=== PATIENT | female | born 1960 | race Caucasian/White ===

== ENCOUNTER 2022-01-08 10:20 | Emergency (ER) | payer MEDICARE, MEDICAID ==
[2022-01-08 10:25] VITALS: BP 109/63; PULSE 68
== END 2022-01-08 11:26 | disposition home or self-care (01) ==
LOC: VM.ED 10:20
DX: J02.8 Acute pharyngitis due to other specified organisms (principal); Z88.0 Allergy status to penicillin; Z88.5 Allergy status to narcotic agent; Z88.8 Allergy status to other drugs, medicaments and biological substances
CPT/HCPCS: 87651-QW; 99283

== ENCOUNTER 2023-05-12 11:56 | Emergency (ER) | payer MEDICAID, MEDICARE ==
[2023-05-12] MEDS ORDERED: Acetaminophen/HYDROcodone 325-5 MG Tab PO ONE (13:02)
[2023-05-12 13:50] VITALS: BP 122/60; PULSE 78
== END 2023-05-12 14:12 | disposition home or self-care (01) ==
LOC: VM.ED 11:56
DX: S63.287A Dislocation of proximal interphalangeal joint of left little finger, initial encounter (principal); S01.81XA Laceration without foreign body of other part of head, initial encounter; Z88.0 Allergy status to penicillin; Z88.8 Allergy status to other drugs, medicaments and biological substances; W18.30XA Fall on same level, unspecified, initial encounter
CPT/HCPCS: 12011; 26770; 73140; 99283; A9270

== ENCOUNTER 2023-11-16 10:07 | Emergency (ER) | payer MEDICARE, MEDICAID ==
[2023-11-16] MEDS: Ibuprofen 200 MG Tab PO ONE (10:53)
[2023-11-16] MEDS: Acetaminophen 500 MG Tab PO ONE (10:54)
[2023-11-16] MEDS: levETIRAcetam in NaCl (iso-os) 500 MG in Premix Bag 1 BAG IV ONE (12:04)
[2023-11-16] MEDS: LORazepam 2 MG/ML SDV IVPUSH ONE (12:13)
[2023-11-16] MEDS: levETIRAcetam 500 MG/5 ML SDV IVPUSH ONE (12:20)
[2023-11-16 15:10] VITALS: BP 124/79; PULSE 71
== END 2023-11-16 14:14 | disposition home or self-care (01) ==
LOC: VM.ED 10:07
DX: S09.90XA Unspecified injury of head, initial encounter (principal); R56.9 Unspecified convulsions; M54.2 Cervicalgia; Z88.0 Allergy status to penicillin; Z88.8 Allergy status to other drugs, medicaments and biological substances; Z79.899 Other long term (current) drug therapy; W19.XXXA Unspecified fall, initial encounter
CPT/HCPCS: 70450; 72100; 72125; 96374; 96375; 99284; A9270; J1953; J2060